=== PATIENT | female | born 1960 | race Caucasian/White ===

== ENCOUNTER → 2018-07-21 | Outpatient (CLI) | payer OTHER ==
[~2018-07-21] MED LIST: ACE325 PO; IBU200 PO; LYSI500T34 PO
--- NOTE | 2018-07-21 17:15 | RADIOLOGY IMAGING REPORT ---
FACILITY: [facility] - [place] PATIENT NAME: NADIR TURNER : [id number] MR: [id number] V: [id number] EXAM DATE: ORDERING PHYSICIAN: JANET TREVIÑO TECHNOLOGIST: Patricia Macias PROCEDURE:BILATERAL DIGITAL SCREENING MAMMOGRAM WITH CAD ASSISTED INTERPRETATION & 3D TOMOSYNTHESIS COMPARISON:Prior mammograms 03/28/17, 02/12/16, 12/23/13, 12/17/12, 12/11/11. INDICATIONS:screening FINDINGS: The breasts are heterogeneously dense which can obscure small masses. The parenchymal pattern has remained stable allowing for difference in mammographic technique & patient positioning. DIAGNOSTIC CATEGORY 1--NEGATIVE. RECOMMENDATIONS: ROUTINE MAMMOGRAM AND CLINICAL EVALUATION. IMPRESSION: BIRADS 1: Negative. No significant abnormality is seen. Dictated by: Praveena Quevedo M.D. on 07/21/2018 at 11:47 Transcribed by: ANA on 07/21/2018 at 11:53 Approved by: Praveena Quevedo M.D. on 07/21/2018 at 17:14 [facility]
== END ==
LOC: MAMO 02:01
PROVIDERS: ATTEND Obstetrics & Gynecology
DX: Z12.31 Encounter for screening mammogram for malignant neoplasm of breast (principal)
CPT/HCPCS: 77063; 77067